=== PATIENT | female | born 1995 | race Caucasian/White ===

== ENCOUNTER 2021-06-05 21:03 | Emergency (ER) | payer BC, SELFPAY ==
--- NOTE | ~2021-06-05 | XR_ITS ---
XR finger 1st RT min 2V DATE: 06/05/2021 22:00 INDICATION: Laceration of first digit and generalized first digit pain TECHNIQUE: 3 views of first digit COMPARISON: None FINDINGS: No fracture or dislocation, periosteal reaction or bone destruction, radiopaque soft tissue foreign body or subcutaneous emphysema. IMPRESSION: Negative Reviewed, dictated and finalized at location A. SIDE MECHANIC IMPRESSION: Negative
[2021-06-05 21:09] VITALS: BP 143/83; PULSE 101; RESP 17; TEMP 37.4; O2SAT 100
--- NOTE | 2021-06-05 22:37 | ED.WOUNDLAC ---
HPI - Wound/Laceration General Chief Complaint: Wound/Laceration Stated Complaint: lac to right thumb Time Seen by Provider: 06/05/21 21:43 Source: patient Mode of arrival: ambulatory Limitations: no limitations History of Present Illness HPI narrative: Right thumb laceration, while opening a can. Prior to arrival, unknown tetanus Related Data Allergies Allergy/AdvReac Type Severity Reaction Status Date / Time No Known Allergies Allergy Verified 06/05/21 23:01 Review of Systems Review of Systems: CONSTITUTIONAL: Denies fever, chills, or sweats. EYES: Denies visual changes, redness, or discharge. ENT: Denies rhinorrhea, congestion, sore throat, or otalgia. CARDIOVASCULAR: Denies chest pain, palpitations, or edema. RESPIRATORY: Denies cough or dyspnea. GASTROINTESTINAL: Denies abdominal pain, nausea, vomiting, or diarrhea. GENITOURINARY: Denies dysuria or hematuria. SKIN: Denies rash or itching. MUSCULOSKELETAL: Denies back pain, joint pain, or myalgia. NEUROLOGIC: Denies headache, numbness, or weakness. PSYCHIATRIC: Denies anxiety or depression. Exam Narrative: General appearance: Well-developed, well-nourished Skin: Normal color, right thumb exam showed 1 centimeter laceration at the palmar side, subcutaneous, no ligament or tendon laceration. Chest and respiratory: Airway patent, no respiratory distress, no accessory muscle use Heart: Regular rate/rhythm Vascular: Normal peripheral pulses, normal capillary refill. Musculoskeletal: Normal range of motion, nontender back Course Course Emergency Course: Stable Vital Signs Vital signs: Vital Signs Temperature 37.4 C 06/05/21 21:09 Pulse Rate 101 H 06/05/21 21:09 Respiratory Rate 17 06/05/21 21:09 Blood Pressure 143/83 H 06/05/21 21:09 Pulse Oximetry 100 06/05/21 21:09 Temperature 37.4 C 06/05/21 21:09 Pulse Rate 88 06/06/21 00:41 Respiratory Rate 16 06/06/21 00:41 Blood Pressure 124/65 06/06/21 00:41 Pulse Oximetry 99 06/06/21 00:41 Procedures Laceration Laceration 1: Date: 06/05/21 Time: 23:49 Site: other (Right thumb) Size (cm): 1 Description: linear Depth: simple, single layer Pre-repair: wound explored and irrigated ====== Skin Level ====== Skin layer closed with: dermabond ====== Subcutaneous Layer ====== ====== Muscle Layer ====== ====== Tendon Layer ====== MDM - Wound/Laceration Imaging Data Radiologist's impression: Impressions Finger X-Ray 06/05/21 22:09 IMPRESSION: Negative Critical Care Time Critical Care Time Critical Care Time: No Discharge Plan Discharge Clinical Impression: Finger laceration Qualifiers: Encounter type: initial encounter Finger: thumb Damage to nail status: without damage Foreign body presence: without foreign body Laterality: right Qualified Code(s): S61.011A - Laceration without foreign body of right thumb without damage to nail, initial encounter Patient Disposition: Home, Self-Care Condition: Stable Instructions: Laceration (ED), Skin Adhesive Care (ED) Additional Instructions: Return if symptoms are worsening , call your family physician for appointment, take Tylenol as as needed for aches and pain, continue home medications., Remove sutures in 8 days Follow-up/Referrals: NILDA,DAMIEN Jade APN [Primary Care Provider] - Stand Alone Forms: Work/School Release IP
[2021-06-05] MEDS: LIDO 1%/EPINEPHRINE 1:100,000 10 ML VIAL (23:02)
[2021-06-05] MEDS: TETANUS,DIPHTHERIA,AC PERTUSSIS ADULT (0.5 ML) BOOSTRIX IM (23:02)
[2021-06-06 00:41] VITALS: BP 124/65; PULSE 88; RESP 16; O2SAT 99
== END 2021-06-06 00:42 | disposition home or self-care (01) ==
PROVIDERS: Emergency Provider Emergency Medicine; PCP Nurse Practitioner
DX: S61.011A Laceration without foreign body of right thumb without damage to nail, initial encounter (principal); Z23 Encounter for immunization; W26.8XXA Contact with other sharp object(s), not elsewhere classified, initial encounter
CPT/HCPCS: 12001; 73140; 90471; 90715; 99283

== ENCOUNTER 2022-10-31 16:35 | Outpatient (CLI) | payer BC, SELFPAY ==
[2022-10-31 17:43] LABS: Hepatitis B Surface Antigen Negative (Negative)
[2022-10-31 18:00] LABS: HIV 1/2 Ab P24 Ag Result Negative (Negative); Hepatitis C Virus Antibody Negative (Negative)
== END 2022-10-31 16:36 | disposition home or self-care (01) ==
PROVIDERS: PCP Obstetrics & Gynecology; Visit Provider Obstetrics & Gynecology
DX: T14.8XXA Other injury of unspecified body region, initial encounter (principal); W46.1XXA Contact with contaminated hypodermic needle, initial encounter
CPT/HCPCS: 36415; 86703; 86803; 87340; G0432

== ENCOUNTER 2023-01-27 01:39 | Day surgery (SDC) | payer BC, SELFPAY ==
[2023-01-21 15:49] VITALS: BMI 31.0
--- NOTE | 2023-01-21 15:54 | PC.NURSE ---
Report to the Outpatient Waiting Room, entrance under the green pavilion located off [facility], at time 0600 on date 01/27/23. Planned Procedure Time: 0730. Time changes happen often and if your time is changed the preop area will call you the afternoon before. - You and your visitor will be asked to self-screen and do not enter if you have any COVID symptoms. - A mask is optional within the hospital at this time. Patients may have clear liquids (water, carbonated beverages, clear teas, apple juice) until 3 hours prior to surgery with a maximum of 20 ounces. - No food from midnight until time of surgery Take the following medications with a SIP of water the morning of surgery: BUPROPION, CONTROL, VILAZODONE DO NOT STOP ANY OF YOUR OTHER PRESCRIPTION MEDICATIONS PRIOR TO SURGERY ?EXCEPT THE FOLLOWING Medications to discontinue per physician: N/A Date to take last dose: N/A Please no make-up, nail kosovan, hairspray, perfume, deodorant, or body powder the day of surgery. No jewelry (including any body piercings) or valuables the day of surgery, leave them at home. Please take a shower or bath the night before, or the morning of, surgery with an antibacterial soap. Wear comfortable, loose fitting clothing. - Jewelry must be removed prior to entering the operating room. Rings and piercings that are not removed may be cut off. - The hospital will not accept responsibility for valuables. - Please leave all valuables, including medications, at home the day of surgery. If you are going home after surgery, a licensed city bus driver must drive you home. - NO public transportation without another adult if you receive anesthesia. - We recommend that an adult stay with you for 24 hours following discharge. - We also recommend that you do not drive, make important decision, drink alcoholic beverages, or take any drugs that were not prescribed by your health care provider for at least 24 hours after your discharge time. Follow any additional instructions given to you from your surgeon. If you or anyone in your household have experienced Covid symptoms in the past week, please notify your surgeon or the nurse liaison at the phone number below for possible testing. Telephone instructions given to PT - FLOR[place] NUÑEZ and asked if any additional questions and then verbalized understanding. Patient advised to call surgeon office or pre surgery nurse liaison [phone] if any additional questions.
--- NOTE | 2023-01-26 15:19 | PM.IMHP ---
H&P: HPI History of Present Illness Date/Time: 01/26/23 15:19 Chief Complaint: bartholin's gland cyst Narrative: Yohana is a 27yo G0, who presents for surgical management of recurrent Bartholin's gland abscesses. It was very large (bigger than a golf ball) and was drained on 10/31/22, but recurred; had another abscess that spontaneously drained over Labor Day Weekend. She has taken antibiotics mulitple times. She reports it is doing much better; but a non-tender lump is still present. She has a h/o Bartholin's gland problems in ~. Prior OBGYN then told her not to worry about it since it wasn't bothering her. Review of Systems Constitutional: Constitutional: Denies chills, Denies fever(s) and Denies headache(s) Eyes: Eyes: Denies change in vision ENT: Denies dizziness and Denies headache(s) Cardiovascular: Cardiovascular: Denies chest pain and Denies dyspnea Respiratory: Respiratory: Denies cough and Denies dyspnea Gastrointestinal: Gastrointestinal: Denies abdominal pain and Denies change in stool character Genitourinary: Genitourinary: Denies abnormal menses, Denies pelvic pain, Denies vaginal discharge, Denies vaginal odor and Denies vaginal pruritus Neurologic: Denies dizziness and Denies headache(s) Psychiatric: Psychiatric: Denies anxiety and Denies depression PMFSH Past Medical History Medical History Acute anxiety ADHD Depression Human papilloma virus Surgical History Surgical History H/O colposcopy with cervical biopsy wnl per pt -nm Family History Family History Grandparent Heart disease Stomach cancer Other Diabetes mellitus Social History Social History Smoking status: Never smoker Alcohol intake: current Alcohol use details: RARE Substance use: current Substance use type: marijuana Lack of Transportation: No Lack of Food: Never True Current Housing: I Have Housing Concerned About Future Housing: No Difficulty Paying Gas/Electric Bills: No Difficulty Paying for Meds: No Currently Unemployed: No Education: Bachelor's Degree Difficulty w/ Childcare or Family Care: No Living arrangements: alone Occupation/Education: occupation Gender identity (if verbalized by the patient): Female Sexual Orientation (if Verbalized by the Patient): Bisexual Spiritual care concerns: No Meds Home Medications and Allergies Home Medications Medication Instructions Recorded Confirmed Type atomoxetine 60 mg capsule 60 mg PO DAILY 10/31/22 01/21/23 History norgestimate 0.18 mg/0.215 mg/0.25 1 tablet PO DAILY 10/31/22 01/21/23 History mg-ethinyl estradiol 25 mcg tablet ([id number]-Rcbzyg) vilazodone 20 mg tablet 20 mg PO DAILY 10/31/22 01/21/23 History ondansetron HCl 4 mg tablet 4 mg PO Q6H PRN nausea and 01/17/23 01/21/23 Rx vomiting #30 tabs bupropion HCl 150 mg 24 hr tablet, 150 mg PO DAILY 01/21/23 01/21/23 History extended release Allergies Allergy/AdvReac Type Severity Reaction Status Date / Time No Known Allergies Allergy Verified 01/21/23 15:47 Exam Const: General: cooperative, healthy appearing, comfortable and no acute distress Orientation/consciousness: patient oriented x3 Resp: Effort & Inspection: normal respiratory effort Cardio: Rate: regular rate GI: Inspection: normal to inspection GI Palp: No abdominal tenderness and Yes Soft to palpation : Other: deferred to OR Skin: General skin exam: normal color Neuro: General: patient oriented x3 Extrem: General: normal to inspection Psych: Appearance: grossly normal Affect: normal affect Attitude: cooperative Assessment and Plan Assessment and plan (1) Bartholin gland cyst: Code(s): N75.0 - Cyst of Bartholin's gland
--- NOTE | 2023-01-27 06:38 | WPDANESEPPF ---
Anes - Initial Pre Proc Eval Procedure: Operation Date: 01/27/23 07:30 Proposed Procedures p Bartholin Gland Cyst Removal with Possible Marsupialization - Zeina Epps MD Date/Time: 01/27/23 06:38 Surgeon: Zeina Epps MD Pre Op Diagnosis: right Bartholin gland cyst Patient Data Age: 27 Gender: F Height: 1.6 m Weight: 79.4 kg Allergies Allergy/AdvReac Type Severity Reaction Status Date / Time sulfamethoxazole Allergy Mild Swelling Verified 01/27/23 06:38 [From Bactrim] of Lip/Tongue/Throat trimethoprim [From Bactrim] Allergy Mild Swelling Verified 01/27/23 06:38 of Lip/Tongue/Throat Home Medications Medication Instructions Recorded Confirmed Type atomoxetine 60 mg capsule 60 mg PO DAILY 10/31/22 01/21/23 History norgestimate 0.18 mg/0.215 mg/0.25 1 tablet PO DAILY 10/31/22 01/21/23 History mg-ethinyl estradiol 25 mcg tablet (Sbh-Vf-Riqrzq) vilazodone 20 mg tablet 20 mg PO DAILY 10/31/22 01/21/23 History ondansetron HCl 4 mg tablet 4 mg PO Q6H PRN nausea and 01/17/23 01/21/23 Rx vomiting #30 tabs bupropion HCl 150 mg 24 hr tablet, 150 mg PO DAILY 01/21/23 01/21/23 History extended release Patient hx anesthesia problems: none Family hx anesthesia problems: none Results Review: All pre-operative results and documents have been reviewed as part of the pre-operative evaluation. [facility] Past Medical History Medical History Acute anxiety ADHD Depression Human papilloma virus Surgical History Surgical History H/O colposcopy with cervical biopsy wnl per pt -nm Hx of tonsillectomy Family History Family History Grandparent Heart disease Stomach cancer Other Diabetes mellitus Social History Social History Smoking status: Never smoker Alcohol intake: current Alcohol use details: RARE Substance use: current Substance use type: marijuana Lack of Transportation: No Lack of Food: Never True Current Housing: I Have Housing Concerned About Future Housing: No Difficulty Paying Gas/Electric Bills: No Difficulty Paying for Meds: No Currently Unemployed: No Education: Bachelor's Degree Difficulty w/ Childcare or Family Care: No Living arrangements: alone Occupation/Education: occupation Gender identity (if verbalized by the patient): Female Sexual Orientation (if Verbalized by the Patient): Bisexual Spiritual care concerns: No Anes - Eval Final PreProcedure Day of Procedure 01/27/23 06:38 Patient weight: obese Heart: regular rate and rhythm Lungs: clear to auscultation Airway: Mallampati scale class III Neurological: alert and oriented Last oral intake: >/= 8 hours ASA classification: II Emergent: no Anesthetic plan: proceed Anesthesia type and monitoring: general GIVS and standard monitoring Results Review: All pre-operative results and documents have been reviewed as part of the pre-operative evaluation. Informed Consent: The patient's anesthetic plan and its attendant risks and benefits were discussed with the patient/family/POA. Questions were solicited and answers provided to the satisfaction of the patient/family/POA.
[2023-01-27] MEDS: LACTATED RINGERS 1,000 ML 30 ML IV CONT (06:45)
[2023-01-27 07:00] VITALS: BP 126/83; PULSE 103; RESP 16; TEMP 36.1; O2SAT 100
[2023-01-27] MEDS: ACETAMINOPHEN 500 MG TABLET 1000 MG PO (07:04)
--- NOTE | 2023-01-27 07:11 | WPDHPUPDATE1 ---
History and Physical Update Update Date/Time: 01/27/23 07:11 History and Physical has been reviewed, including an updated exam of the patient. There are NO changes in the patient's condition. Risks, benefits, and alternatives have been discussed and questions answered. Patient agrees to proceed with procedure.
[2023-01-27] MEDS: ceFAZolin 2 GM/D5W 50 ML 2 GM/50 ML BAG IVPB (07:25)
[2023-01-27] MEDS: LIDOCAINE HCL 1% LOCAL INJ 20 ML VIAL 10 ML INFILTRATE (07:48)
--- NOTE | 2023-01-27 08:09 | W.PM.PROC2 ---
Procedure Note - Detailed Date of Procedure 01/27/23 Pre-op Diagnosis Recurrent right Bartholin gland cyst Post-op Diagnosis Same Procedure Performed Right sided marsupialization of the Bartholin's gland Surgeon Zeina Epps MD Anesthesia MAC and Local (6cc of 1% lidocaine) Findings Right sided Bartholin's gland cyst, ~2cm. Small amount of cyst contents noted. Good hemostasis at end of case. Description of Procedure Yohana was taken to the operating room where she was placed under sedation. She was then placed in dorsal lithotomy position with the legs in low Sam stirrups. She was prepped and draped in the normal fashion and a time-out was performed. She was given Ancef 2 g IV once. The Bartholin's gland was identified and infiltrated using 1% lidocaine. A oval incision was made using a scalpel and the gland was then entered using Metzenbaum scissors. A small amount of cyst contents were then noted. The Bartholin's gland was unroofed. Small bleeders on the mucosal edges were cauterized with Bovie cautery. The Bartholin's gland was sutured to the mucosa in a running fashion using 3-0 Vicryl and an opening of approximately 1cm was noted. Good hemostasis was noted. Additional lidocaine was used for further pain control. Sponge, lap, instrument, and needle counts were correct at the end the procedure. Patient was awoken from anesthesia and taken to recovery in a stable condition with plans of same-day discharge home. Estimated Blood Loss 10 Pathology Yes Complications No immediate complications Condition Stable Disposition Same day [facility] Billing Surgery - Charge Forward: Surgery Billing
[2023-01-27 08:10] VITALS: BP 94/59; PULSE 89; RESP 12; O2SAT 95
[2023-01-27 08:30] VITALS: BP 109/90; PULSE 85; RESP 20
[2023-01-27] MEDS: oxyCODONE HCL (*CRX) 5 MG TAB IR PO (08:31)
[2023-01-27 09:00] VITALS: BP 109/70; PULSE 90; RESP 20
[2023-01-27 09:20] VITALS: BP 110/72; PULSE 88; RESP 20
== END 2023-01-27 09:32 | disposition home or self-care (01) ==
PROVIDERS: Visit Provider Obstetrics & Gynecology
PROC: (CPT 56440; principal; 2023-01-27 07:30)
DX: N75.0 Cyst of Bartholin's gland (principal); F90.9 Attention-deficit hyperactivity disorder, unspecified type; F41.9 Anxiety disorder, unspecified; F32.A Depression, unspecified; F12.90 Cannabis use, unspecified, uncomplicated; E66.9 Obesity, unspecified; Z68.31 Body mass index [BMI] 31.0-31.9, adult
CPT/HCPCS: 56440; 88305; A9270; J0690; J2250; J2405; J2704; J3010; J7120